=== PATIENT | male | born 1995 | race Caucasian/White ===

== ENCOUNTER 2017-05-10 13:23 | Emergency (ER) | payer OTHER, SELFPAY | END 2017-05-10 13:54 | disposition home or self-care (01) | LOC: ERS 13:23 | DX: L01.00 Impetigo, unspecified (principal) | CPT/HCPCS: 99282 ==

== ENCOUNTER 2017-05-15 18:09 | Emergency (ER) | payer SELFPAY ==
[2017-05-15 19:02] LABS: Bilirubin Negative (Negative); Blood, Urine Trace (Negative); Clarity CLEAR (Clear); Glucose, Urine (Dipstick) Negative (Negative); Leukocyte Negative (Negative); Nitrite Negative (Negative); Protein, Urine (Dipstick) Negative (Neg-Trace); Specific Gravity, Urine 1.026 (1.002-1.036)
[2017-05-15 19:04] LABS: Bacteria/HPF None Seen HPF (None Seen); Hyaline Casts/LPF 0-3 HYALINE CAST LPF (0-3 Hyaline); RBC/HPF 0-3 HPF (0-3); Squamous Epithelial None Seen HPF (0-3); WBC/HPF 0-3 HPF (0-3)
[2017-05-15] MEDS ORDERED: Adacel (T-DAP) 0.5 ML VIAL ONE (20:52)
[2017-05-17 00:48] LABS: Chlamydia by PCR Not Detected (NotDetected); GC by PCR Not Detected (NotDetected)
== END 2017-05-15 21:00 | disposition home or self-care (01) ==
LOC: ERS 18:09
DX: L01.00 Impetigo, unspecified (principal)
CPT/HCPCS: 81003; 81015; 87491; 87591; 90715; 99283

== ENCOUNTER 2017-07-30 02:50 | Emergency (ER) | payer SELFPAY | END 2017-07-30 07:37 | disposition home or self-care (01) | LOC: ERS 02:50 | DX: F10.129 Alcohol abuse with intoxication, unspecified (principal) | CPT/HCPCS: 99284 ==

== ENCOUNTER 2018-06-18 10:22 | Emergency (ER) | payer SELFPAY ==
[2018-06-18] MEDS ORDERED: Ondansetron ODT 4 MG TAB ONE (11:11)
== END 2018-06-18 15:33 | disposition home or self-care (01) ==
LOC: ERS 10:22
DX: B34.9 Viral infection, unspecified (principal)
CPT/HCPCS: 87081; 87430; 87804; 99283; Q0162

== ENCOUNTER 2022-06-01 13:55 | Emergency (ER) | payer SELFPAY | END 2022-06-01 14:54 | disposition home or self-care (01) | LOC: ERS 13:55 | DX: G51.0 Bell's palsy (principal) | CPT/HCPCS: 99283 ==